=== PATIENT | female | born 1955 | race Caucasian/White ===

== ENCOUNTER → 2019-06-11 15:00 | Outpatient (BNVA) | payer OTHER, SELFPAY | PROVIDERS: Family Provider Nurse Practitioner; PCP Nurse Practitioner; Visit Provider Nurse Practitioner Family | DX: L03.111 Cellulitis of right axilla (principal); R09.89 Other specified symptoms and signs involving the circulatory and respiratory systems | CPT/HCPCS: 80053; 85025 ==